=== PATIENT | male | born 1950 | race Caucasian/White ===

== ENCOUNTER → 2019-08-03 10:04 | Outpatient (CLI) | payer OTHER, SELFPAY ==
--- NOTE | 2019-08-03 | DI.RAD.S_ITS ---
PROCEDURE: FL BARIUM SWALLOW W SPEECH INDICATIONS: Other dysphagia TECHNIQUE: Examination was conducted in conjunction with speech pathology per standard protocol. In the lateral projection, filming was performed of the patient swallowing. AP projection filming may also be performed with patient swallowing. COMPARISON: None. FINDINGS: Function: The oral preparatory phase appears normal, with proper containment. The subsequent oral propulsive phase, pharyngeal phase, and esophageal phase of swallowing also appear normal with all proffered substances. No laryngotracheal penetration or aspiration. Mild residue noted, and mild vallecular pooling. Morphology: No cricopharyngeal bar is identified. No cervical esophageal webs. No Zenker's diverticulum. No strictures. IMPRESSION: No aspiration identified. Dictated by: Cayetano Deleon M.D. on 08/03/2019 at 15:50 Approved by: Cayetano Deleon M.D. on 08/03/2019 at 15:50
--- NOTE | 2019-08-03 15:58 | ST.SWALLOW ---
Visit Care Team Role Provider Type Elizabeth Costa PA-C Family Provider Non-Staff Primary Care Provider Specialty: Medical Address: [address] [place] [address] [address], [place], [address] Email: Ben Rubalcava MD Attending Provider Physician Specialty: Ear, Nose, Throat Address: [address] [place] [address] [place], [address] Email: [email or web address] Modified Barium Swallow Study ASSISTANT ACCOUNT MANAGER Modified Barium Swallow Study Start: 08/03/19 11:14 Freq: Status: Active Protocol: Document 08/03/19 11:14 TLC (Rec: 08/03/19 11:20 TLC [id number]) Modified Barium Swallow Study Total Time Visit Start Time 10:30 Visit Stop Time 10:45 Total Visit Minutes [address] 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 He denied severe dysphagia, but reports occasional difficulty swallowing. EGD ~ 10 years ago was reportedly normal. He halso had a barium swallow ~30 years ago at which time he was told he may have a hiatal hernia. Thyroid ultrasound report 05/02 was negative. Subjective Observations Patient arrived on time. He was alert, oriented and cooperative during the study. Patient Positioning Position View Lateral Imaging Lateral View Textures Administered Trials Presented Thin Liquid via Spoon,Thin Liquid via Cup,Ginger Blue Liquid via Spoon,Ginger Blue Liquid via Cup,Honey Liquid via Spoon, Dysphagia Blenderized Textures ,Regular Textures Oral Phase Source: MBSIMP (TM) (C) Bolus Specific Scoring Grid Lip Closure No Impairment (WNL) Bolus Prep/Mastication No Impairment (WNL) Bolus Transport/Lingual Motion No Impairment (WNL) Oral Residue No Impairment (WNL) Additional Oral Phase Observations No oral phase impairments observed Pharyngeal Phase Source: MBSIMP (TM) (C) Bolus Specific Scoring Grid Soft Palate Elevation No Impairment (WNL) Laryngeal Elevation Minimal Impairment Anterior Hyoid Movement No Impairment (WNL) Epiglottic Range of Motion No Impairment (WNL) Laryngeal Vestibular Closure Minimal Impairment Pharyngeal Stripping Wave No Impairment (WNL) Pharyngeal Contraction Minimal Impairment Upper Esophageal Sphincter Opening Minimal Impairment Additional Pharyngeal Phase Observations Initiation of pharyngeal swallow happened at the level of the valleculae with cup sips of thin liquids. There was a collection of vallecular and pyriform sinus residue with cups sips and residue increased as bolus size increased. Additional dry swallows were successful in reducing residue. There was partial duration and distention of UES opening. Though no penetration or aspiration were observed during the study, laryngeal elevation and laryngeal vestibular closure were partial evidenced by a column of air in the laryngeal vestibule which increases aspiration risk. A/P View Clinical Impressions Findings Patient presents with signs of a functional aging swallow, consistent with presbyphagia. Pharyngeal/esophageal spasms were not observed during the study and a cause of symptoms was not identifiable. Verbal education was provided at the time of the study regarding implementation of compensatory strategies to minimize pharyngeal residue and increase overall swallow safety. Outpatient therapy is not recommended at this time; however, should be considered in the future if symptoms of dysphagia worsen and/or there is increased concern for aspiration. Recommendations Diet Liquids Order Thin Diet Order Regular Aspiration Precautions Recommended Precautions Upright at 90 Degrees,Small Bites/Sips,Double Swallow Treatment Plan Placement Recommendation After Discharge Home
== END ==
PROVIDERS: Family Provider Physician Assistant Medical; PCP Physician Assistant Medical; Visit Provider Otolaryngology
DX: R13.19 Other dysphagia (principal)
CPT/HCPCS: 74230; 92611